=== PATIENT | male | born 1970 | race Caucasian/White ===

== ENCOUNTER 2019-10-08 16:37 | Emergency (ER) | payer SELFPAY ==
[~2019-10-08] VITALS: Ht 182.9 cm; Wt 113.0 kg
[2019-10-08] MEDS ORDERED: KETOROLAC 60MG/2ML VIAL IM ONE (17:45)
[2019-10-08 18:54] VITALS: BP 151/86
== END 2019-10-08 18:56 | disposition home or self-care (01) ==
LOC: ER 16:37
DX: M54.5 Low back pain (principal); I10 Essential (primary) hypertension; E11.9 Type 2 diabetes mellitus without complications; Z98.1 Arthrodesis status; V43.52XA Car driver injured in collision with other type car in traffic accident, initial encounter; Y93.89 Activity, other specified; Y92.411 Interstate highway as the place of occurrence of the external cause
CPT/HCPCS: 72100; 96372; 99283; J1885